=== PATIENT | female | born 2000 | race Caucasian/White ===

== ENCOUNTER → 2019-02-27 | Outpatient (CLI) | payer OTHER | LOC: ULTRA 14:26 | DX: R22.1 Localized swelling, mass and lump, neck (principal) ==

== ENCOUNTER → 2019-03-06 | Outpatient (CLI) | payer OTHER | LOC: CAT 08:21 | DX: R22.1 Localized swelling, mass and lump, neck (principal); M79.9 Soft tissue disorder, unspecified ==

== ENCOUNTER 2019-10-16 07:47 | Day surgery (SDC) | payer BC ==
[~2019-10-16] VITALS: Ht 165.1 cm; Wt 95.7 kg
[~2019-10-16 07:47] MED LIST: CLONIDINE HCL0.2 M2 PO; NEURONTIN 300M300 M2 PO; ZOLOFT100 MG PO
[2019-10-16 08:30] VITALS: BP 110/62
[2019-10-16] MEDS ORDERED: OXYCODONE HCL 55 MG PO (09:26)
[2019-10-16] MEDS ORDERED: ACETAMINOPHEN325 M1 PO (09:26)
[2019-10-16] MEDS ORDERED: MIRALAX17 GM PO (09:26)
[2019-10-16] MEDS ORDERED: IBUPROFEN 200200 M1 PO (09:26)
[2019-10-16] MEDS ORDERED: COLACE 100 MG100 MG PO (09:26)
[2019-10-16 11:21] VITALS: BP 110/62
--- NOTE | 2019-10-21 11:09 | PATH ---
[facility] [address] [place] [address] PATHOLOGY RPT PROCEDURE Name: GERRY GUARDADO Room #: DE[place] [facility] [place] M.R.#: [id number] Admission: 10/16/19 Date of : 89 Discharge: 10/16/19 Report #: [id number] Path Case #: [id number] [facility] Accession Number: [id number] . 01 Material submitted: . neck - POSTERIOR NECK MASS. Modifiers: posterior . 01 Clinical history: . Localized swelling mass and lump, neck . 02 Diagnosis: Mature adipose tissue, posterior neck mass, excision: - Compatible with a lipoma. 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 02 Electronically signed: . Apolonia Carmen MD, Pathologist NPI- [id number] . 01 Gross description: . The specimen is received in formalin, labeled "Gerry Guardado, posterior neck mass". Received are multiple segments of pale yellow lobulated tissue measuring 5.1 x 3.5 x 1.7 cm in aggregate dimensions. Sectioning reveals yellow-montanez, lobulated cut surfaces throughout with no grossly distinct nodules or lesions. The specimen is submitted representatively in cassette A1. (CAA; 10/17/2019) QAC/QA 10/17/2019 0858 Local . 02 Pathologist provided ICD-10: D17.0 . 02 CPT . 000826 Specimen Comment: A courtesy copy of this report has been sent to [phone] Specimen Comment: [id number] Specimen Comment: Report sent to / DR COOPER Specimen Comment: A duplicate report has been generated due to demographic updates. Performed at: 01 [place] [id number] [address] [id number] MD Slava Salguero MD Phone: [phone] Performed at: [address] [address] PATHOLOGY RPT PROCEDURE Name: GERRY GUARDADO Room #: DEP [facility]#: [id number] Admission: 10/16/19 Date of : 89 Discharge: 10/16/19 Report #: [id number] Path Case #: [id number] [address] [place] [id number] MD Apolonia Carmen MD Phone: [phone]
== END 2019-10-16 12:10 | disposition home or self-care (01) ==
LOC: TBA 07:47 → OR 07:47 → TBA 07:50 → OR 09:12
DX: D17.0 Benign lipomatous neoplasm of skin and subcutaneous tissue of head, face and neck (principal); F32.9 Major depressive disorder, single episode, unspecified; J45.909 Unspecified asthma, uncomplicated; F41.9 Anxiety disorder, unspecified; Z98.890 Other specified postprocedural states; Z79.899 Other long term (current) drug therapy; Z87.891 Personal history of nicotine dependence
CPT/HCPCS: 50010; 50101; 50386; 50417; 54118; 56524; 56526; 62110; 62900; 70005